=== PATIENT | male | born 1995 | race Asian ===

== ENCOUNTER 2016-07-22 15:11 | Emergency (ER) | payer BC ==
[~2016-07-22] VITALS: Ht 182.9 cm; Wt 70.3 kg
== END 2016-07-22 15:38 | disposition left against medical advice (07) ==
LOC: ED 15:11
DX: S60.012A Contusion of left thumb without damage to nail, initial encounter (principal)
CPT/HCPCS: 99281

== ENCOUNTER 2020-02-08 12:35 | Emergency (ER) | payer BC ==
[~2020-02-08] VITALS: Ht 185.4 cm; Wt 81.6 kg
[2020-02-08 14:02] VITALS: BP 119/68; TEMP 98.5
== END 2020-02-08 14:12 | disposition home or self-care (01) ==
LOC: ED 12:35
PROC: 2W3RX1Z Immobilization of Left Lower Leg using Splint (ICD-10-PCS; principal; 2020-02-08)
DX: S82.832A Other fracture of upper and lower end of left fibula, initial encounter for closed fracture (principal); W50.0XXA Accidental hit or strike by another person, initial encounter; Y93.83 Activity, rough housing and horseplay; Y92.89 Other specified places as the place of occurrence of the external cause
CPT/HCPCS: 96372; 99283; J1885